=== PATIENT | female | born 1960 | race Hispanic/Latino ===

== ENCOUNTER → 2018-05-07 | Outpatient (CLI) | payer OTHER | END | disposition home or self-care (01) | LOC: RAH 12:42 | PROVIDERS: ATTEND Family Medicine | DX: Z12.31 Encounter for screening mammogram for malignant neoplasm of breast (principal) | CPT/HCPCS: 77067 ==

== ENCOUNTER → 2018-05-19 | Outpatient (CLI) | payer OTHER | END | disposition home or self-care (01) | LOC: RAH 14:07 | PROVIDERS: ATTEND Family Medicine | DX: N63.11 Unspecified lump in the right breast, upper outer quadrant (principal) | CPT/HCPCS: 76641 ==

== ENCOUNTER → 2021-04-21 | Outpatient (CLI) | payer BC | END | disposition home or self-care (01) | LOC: RAH 14:44 | PROVIDERS: ATTEND Family Medicine | DX: Z12.31 Encounter for screening mammogram for malignant neoplasm of breast (principal) | CPT/HCPCS: 77067 ==

== ENCOUNTER → 2022-05-04 | Outpatient (CLI) | payer BC | END | disposition home or self-care (01) | LOC: RAH 13:47 | PROVIDERS: ATTEND Family Medicine | DX: Z12.31 Encounter for screening mammogram for malignant neoplasm of breast (principal); N63.11 Unspecified lump in the right breast, upper outer quadrant | CPT/HCPCS: 77067 ==

== ENCOUNTER → 2023-05-06 | Outpatient (CLI) | payer BC | END | disposition home or self-care (01) | LOC: RAH 10:03 | PROVIDERS: ATTEND Family Medicine | DX: Z12.31 Encounter for screening mammogram for malignant neoplasm of breast (principal) | CPT/HCPCS: 77067 ==

== ENCOUNTER 2023-09-08 23:59 | Emergency (ER) | payer BC ==
[~2023-09-08] VITALS: Ht 154.9 cm; Wt 81.6 kg
[2023-09-09 00:44] LABS: BASOPHILS # (AUTO) 0.03 K/uL (0.00-0.20); BASOPHILS % (AUTO) 0.4 % (0.0-5.0); EOSINOPHILS # (AUTO) 0.12 K/uL (0.00-0.70); EOSINOPHILS % (AUTO) 1.4 % (0.0-8.0); HEMATOCRIT 35.2 % (36-48); IMMATURE GRANULOCYTE ABSOLUTE 0.01 K/uL (0-1); LYMPHOCYTES # (AUTO) 2.5 K/uL (1.0-4.8); LYMPHOCYTES % (AUTO) 29.9 % (21.0-51.0); MEAN CORPUSCULAR HEMOGLOBIN 28.9 pg (27.0-33.0); MEAN CORPUSCULAR HGB CONC 33.2 g/dL (32.0-36.0); MEAN CORPUSCULAR VOLUME 86.9 fL (79-99); MONOCYTES # (AUTO) 0.6 K/uL (0.1-1.0); NEUTROPHILS # (AUTO) 5.1 K/uL (1.8-7.7); NEUTROPHILS % (AUTO) 61.2 % (40.0-77.0); PLATELET COUNT (AUTO) 238 K/uL (130-400); RED BLOOD CELL COUNT(AUTO) 4.05 MIL/uL (4.00-5.50); RED CELL DISTRIBUTION WIDTH 13.2 % (11.0-15.5); WHITE BLOOD COUNT (AUTO) 8.3 K/uL (4.8-10.8)
[2023-09-09 00:45] LABS: APPEARANCE,URINE CLEAR (CLEAR); BILIRUBIN,URINE NEGATIVE (NEGATIVE); COLOR,URINE COLORLESS (YELLOW); GLUCOSE, URINE (UA) NEGATIVE (NEGATIVE); KETONES,URINE NEGATIVE (NEGATIVE); LEUKOCYTE ESTERASE ,URINE NEGATIVE Leu/uL (NEGATIVE); NITRATE,URINE NEGATIVE (NEGATIVE); OCCULT BLOOD,URINE NEGATIVE (NEGATIVE); PH,URINE 5.5 (5.0-8.0); PROTEIN,URINE NEGATIVE (NEGATIVE); UROBILINOGEN,URINE 0.2 mg/dL (0.2-1.0)
[2023-09-09 00:48] LABS: ADD UA MICROSCOPIC NO
[2023-09-09 01:03] LABS: CREATININE 1.2 mg/dL (0.5-1.5); POTASSIUM 3.5 mmol/L (3.5-5.1)
[2023-09-09 01:08] LABS: ALBUMIN 3.7 g/dL (3.5-5.0); BILIRUBIN,TOTAL 0.9 mg/dL (0.2-1.0); TOTAL PROTEIN, SERUM 7.4 g/dL (6.0-8.3)
[2023-09-09 01:14] VITALS: BP 142/86; PULSE 72; RESP 18; O2SAT 97
[2023-09-09] MEDS ORDERED: ONDA-104 PO (01:14)
[2023-09-09] MEDS ORDERED: TAMS-1 PO (01:14)
[2023-09-09] MEDS ORDERED: IBUP-1493 PO (01:14)
== END 2023-09-09 01:36 | disposition home or self-care (01) ==
LOC: EDH 23:59
DX: N20.0 Calculus of kidney (principal)
CPT/HCPCS: 36415; 74176; 80053; 81003; 85025

== ENCOUNTER → 2024-05-07 | Outpatient (CLI) | payer BC ==
[~2024-05-07] MED LIST: IBUP-1493 PO; ONDA-104 PO; TAMS-1 PO
== END | disposition home or self-care (01) ==
LOC: RAH 09:43
PROVIDERS: ATTEND Family Medicine
DX: Z12.31 Encounter for screening mammogram for malignant neoplasm of breast (principal)
CPT/HCPCS: 77067

== ENCOUNTER → 2025-06-08 | Outpatient (CLI) | payer BC ==
[~2025-06-08] MED LIST changes: -TAMS-1 PO; +TAMS-55 PO
== END | disposition home or self-care (01) ==
LOC: RAH 11:42
PROVIDERS: ATTEND Family Medicine
DX: Z12.31 Encounter for screening mammogram for malignant neoplasm of breast (principal)
CPT/HCPCS: 77067